=== PATIENT | female | born 1995 | race Caucasian/White ===

== ENCOUNTER 2017-02-27 22:06 | Emergency (ER) | payer OTHER ==
[~2017-02-27] VITALS: Ht 157.5 cm; Wt 101.8 kg
[~2017-02-27 22:06] MED LIST: LOMO2.5T PO; ONDA8TAB7 PO; TRAM50TA PO
[2017-02-27 22:07] VITALS: BP 141/81; PULSE 71; RESP 16; TEMP 99.4; O2SAT 99
[2017-02-27 22:32] VITALS: BP 125/85; PULSE 81; RESP 18; O2SAT 98
[2017-02-27] MEDS ORDERED: SODIUM CHLOR 0.9% 1000 ML INJ 1,000 ML IV SCH (22:46)
--- NOTE | 2017-02-27 22:51 | PD ---
HPI Chief Complaint: GI Complaint Time Seen by Provider: 22:28 Travel History International Travel<30 days: No Contact w/Intl Traveler<30days: No Traveled to known affect area: No History of Present Illness HPI The patient is a 21-year-old female who presents to the emergency department for nausea, vomiting, diarrhea. The patient states her symptoms started 3 days ago diarrhea. The patient describes the diarrhea as loose, watery, without any visible blood. The patient then developed left lower quadrant abdominal pain earlier today which is located left lower quadrant, nonradiating, sharp, constant, and assisted with nausea and vomiting. The patient did have several episodes of nausea and vomiting earlier today which have currently resolved. She does note subjective fevers with chills and sweats. She denies any history of colitis, diverticulitis, or recent international travel. The patient does have a history of irregular menstrual cycles, last menstrual cycle was December 2016. She denies . She denies any dysuria, however, does note she feels like she needs to urinate at the end of urination. She thinks she may have an underlying UTI. She denies any known history of Crohn's disease or ulcerative colitis. Symptoms are moderate without any alleviating or exacerbating factors. PFSH Past Medical History Narrative Medical Thyroid disorder, possibly PCOS Thyroid Disease: Yes Tetanus Vaccination: Never Vaccinated Influenza Vaccination: No ?: Not LMP: 01/14/17 Past Surgical History Narrative Surgical tonsillectomy Tonsillectomy: Yes Social History Alcohol Use: No Tobacco Use: No Substance Use: Yes (weed) Allergies-Medications (Allergen,Severity, Reaction): Coded Allergies: acetaminophen (Verified Allergy, Intermediate, Nausea/Vomiting, 02/27/17) hydrocodone (Verified Allergy, Intermediate, Nausea/Vomiting, 02/27/17) oxycodone (Verified Allergy, Intermediate, Nausea/Vomiting, 02/27/17) Reported Meds & Prescriptions Reported Meds & Active Scripts Active No Active Prescriptions or Reported Medications Review of Systems Except as stated in HPI: all other systems reviewed are Neg General / Constitutional: Positive: Fever, Chills Cardiovascular: No: Chest Pain or Discomfort Respiratory: No: Shortness of Breath Gastrointestinal: Positive: Nausea, Vomiting, Diarrhea, Abdominal Pain Genitourinary: Positive: Urgency, No: Dysuria Musculoskeletal: No: Myalgias, Arthralgias Physical Exam Narrative GENERAL: Awake, alert, pleasant 21-year-old female who appears her stated age and is in no acute respiratory distress. SKIN: Focused skin assessment warm/dry. HEAD: Atraumatic. Normocephalic. EYES: No injection or drainage. ENT: No nasal bleeding or discharge. Mucous membranes pink and moist. NECK: Trachea midline. No JVD. CARDIOVASCULAR: Regular rate and rhythm. No murmur appreciated. RESPIRATORY: No accessory muscle use. Clear to auscultation. Breath sounds equal bilaterally. GASTROINTESTINAL: Abdomen soft, tender palpation left lower quadrant. No rebound, guarding, or rigidity. Back: No CVA tenderness. MUSCULOSKELETAL: No obvious deformities. No clubbing. No cyanosis. No edema. NEUROLOGICAL: Awake and alert. No obvious cranial nerve deficits. Motor grossly within normal limits. Normal speech. PSYCHIATRIC: Appropriate mood and affect; insight and judgment normal. Data Data Last Documented VS Vital Signs Date Time Temp Pulse Resp B/P (MAP) Pulse Ox O2 Delivery O2 Flow Rate FiO2 02/27/17 22:32 81 18 125/85 (98) 98 Room Air 02/27/17 22:07 99.4 Orders Orders Complete Blood Count With Diff (02/27/17 22:46) Comprehensive Metabolic Panel (02/27/17 22:46) Lipase (02/27/17 22:46) Urinalysis - C+S If Indicated (02/27/17 22:46) Ct Abd/Pel W/O Iv Contrast (02/27/17 22:46) Iv Access Insert/Monitor (02/27/17 22:46) Ecg Monitoring (02/27/17 22:46) Oximetry (02/27/17 22:46) Ondansetron Inj (Zofran Inj) (02/27/17 23:00) Sodium Chlor 0.9% 1000 Ml Inj (Ns 1000 M (02/27/17 22:46) Sodium Chloride 0.9% Flush (Ns Flush) (02/27/17 23:00) Ketorolac Inj (Toradol Inj) (02/27/17 23:00) Ed Urine Pregnancytest Poc (02/27/17 22:46) Urine Culture (02/27/17 22:50) Labs Laboratory Tests Test 02/27/17 22:50 White Blood Count 12.3 TH/MM3 Red Blood Count 4.55 MIL/MM3 Hemoglobin 12.2 GM/DL Hematocrit 36.6 % Mean Corpuscular Volume 80.5 FL Mean Corpuscular Hemoglobin 26.9 PG Mean Corpuscular Hemoglobin Concent 33.4 % Red Cell Distribution Width 16.5 % Platelet Count 371 TH/MM3 Mean Platelet Volume 9.1 FL Neutrophils (%) (Auto) 66.0 % Lymphocytes (%) (Auto) 27.3 % Monocytes (%) (Auto) 5.4 % Eosinophils (%) (Auto) 0.9 % Basophils (%) (Auto) 0.4 % Neutrophils # (Auto) 8.1 TH/MM3 Lymphocytes # (Auto) 3.4 TH/MM3 Monocytes # (Auto) 0.7 TH/MM3 Eosinophils # (Auto) 0.1 TH/MM3 Basophils # (Auto) 0.0 TH/MM3 CBC Comment DIFF FINAL Differential Comment Urine Color YELLOW Urine Turbidity CLEAR Urine pH 5.5 Urine Specific [place] 1.035 Urine Protein 30 mg/dL Urine Glucose (UA) NEG mg/dL Urine Ketones NEG mg/dL Urine Occult Blood NEG Urine Nitrite NEG Urine Bilirubin NEG Urine Urobilinogen 2.0 MG/DL Urine Leukocyte Esterase TRACE Urine RBC 2 /hpf Urine WBC 11 /hpf Urine Squamous Epithelial Cells 3 /hpf Urine Hyaline Casts 1 /lpf Urine Mucus MANY /lpf Microscopic Urinalysis Comment CULTURE INDICATED Blood Urea Nitrogen 11 MG/DL Creatinine 0.79 MG/DL Random Glucose 80 MG/DL Total Protein 8.1 GM/DL Albumin 3.7 GM/DL Calcium Level 8.7 MG/DL Alkaline Phosphatase 84 U/L Aspartate Amino Transf (AST/SGOT) 9 U/L Alanine Aminotransferase (ALT/SGPT) 18 U/L Total Bilirubin 0.2 MG/DL Sodium Level 140 MEQ/L Potassium Level 3.6 MEQ/L Chloride Level 106 MEQ/L Carbon Dioxide Level 27.3 MEQ/L Anion Gap 7 MEQ/L Estimat Glomerular Filtration Rate 90 ML/MIN Lipase 131 U/L [facility] Medical Decision Making Medical Screen Exam Complete: Yes Emergency Medical Condition: Yes Medical Record Reviewed: Yes Interpretation(s) Laboratory Tests Test 02/27/17 22:50 White Blood Count 12.3 TH/MM3 Red Blood Count 4.55 MIL/MM3 Hemoglobin 12.2 GM/DL Hematocrit 36.6 % Mean Corpuscular Volume 80.5 FL Mean Corpuscular Hemoglobin 26.9 PG Mean Corpuscular Hemoglobin Concent 33.4 % Red Cell Distribution Width 16.5 % Platelet Count 371 TH/MM3 Mean Platelet Volume 9.1 FL Neutrophils (%) (Auto) 66.0 % Lymphocytes (%) (Auto) 27.3 % Monocytes (%) (Auto) 5.4 % Eosinophils (%) (Auto) 0.9 % Basophils (%) (Auto) 0.4 % Neutrophils # (Auto) 8.1 TH/MM3 Lymphocytes # (Auto) 3.4 TH/MM3 Monocytes # (Auto) 0.7 TH/MM3 Eosinophils # (Auto) 0.1 TH/MM3 Basophils # (Auto) 0.0 TH/MM3 CBC Comment DIFF FINAL Differential Comment Urine Color YELLOW Urine Turbidity CLEAR Urine pH 5.5 Urine Specific [place] 1.035 Urine Protein 30 mg/dL Urine Glucose (UA) NEG mg/dL Urine Ketones NEG mg/dL Urine Occult Blood NEG Urine Nitrite NEG Urine Bilirubin NEG Urine Urobilinogen 2.0 MG/DL Urine Leukocyte Esterase TRACE Urine RBC 2 /hpf Urine WBC 11 /hpf Urine Squamous Epithelial Cells 3 /hpf Urine Hyaline Casts 1 /lpf Urine Mucus MANY /lpf Microscopic Urinalysis Comment CULTURE INDICATED Blood Urea Nitrogen 11 MG/DL Creatinine 0.79 MG/DL Random Glucose 80 MG/DL Total Protein 8.1 GM/DL Albumin 3.7 GM/DL Calcium Level 8.7 MG/DL Alkaline Phosphatase 84 U/L Aspartate Amino Transf (AST/SGOT) 9 U/L Alanine Aminotransferase (ALT/SGPT) 18 U/L Total Bilirubin 0.2 MG/DL Sodium Level 140 MEQ/L Potassium Level 3.6 MEQ/L Chloride Level 106 MEQ/L Carbon Dioxide Level 27.3 MEQ/L Anion Gap 7 MEQ/L Estimat Glomerular Filtration Rate 90 ML/MIN Lipase 131 U/L Last Impressions Abdomen/Pelvis CT 02/27/17 2246 Signed Impressions: Service Date/Time: February 23:38 - CONCLUSION: No acute CT findings in the abdomen or pelvis Eliel Paz MD Differential Diagnosis Differential diagnosis includes viral syndrome, gastroenteritis, colitis, diverticulitis, enteritis, dehydration, food poisoning. Narrative Course IV was established, labs are drawn and sent, and the patient was placed on cardiac telemetry monitoring and continuous pulse oximetry monitoring. The patient was administered Toradol, Zofran, and IV fluids. UA was sent to lab. Bedside UA test was obtained. CT of the abdomen and pelvis without IV contrast was ordered. CT the abdomen and pelvis is unremarkable. White count is 12.3, LFTs and lipase unremarkable. WBCs of 11 in the UA consistent with UTI. The patient most likely has gastritis with underlying UTI. The patient will be treated with sulfa twice a day for one week and administered Zofran as needed for nausea/vomiting. Diagnosis Primary Impression: Gastroenteritis Additional Impression: UTI (urinary tract infection) Qualified Codes: N30.00 - Acute cystitis without hematuria Patient Instructions: General Instructions Additional Instructions: Please provide a patient a work excuse for and Friday. Please provide the patient a copy of her CT results and lab results at discharge. Medications as directed. Follow-up with her primary physician. Clear liquid diet and advance as tolerated. Return if symptoms worsen or progress. Med/Other Pt SpecificInfo: Prescription(s) given Scripts Sulfamethoxazole-Trimethoprim (Bactrim DS) 800-160 Mg Tab 1 TAB PO BID for Infection, #14 TAB 0 Refills Prov: Roman Adame MD 02/28/17 Ondansetron Odt (Zofran Odt) 4 Mg Tab 4 MG SL Q6HR Y for Nausea/Vomiting, #10 TAB 0 Refills Prov: Roman Adame MD 02/28/17 Disposition: DISCHARGE HOME Condition: Stable Roman Adame MD Feb 27, 2017 22:51
[2017-02-27] MEDS ORDERED: ONDANSETRON HCL 4 MG/2 ML VIAL IVP ONE (23:00)
[2017-02-27] MEDS ORDERED: SODIUM CHLORIDE 0.9% FLUSH 10 ML FLUSH IV FLUSH PRN (23:00)
[2017-02-27] MEDS ORDERED: KETOROLAC TROMETHAMINE 30 MG/ML (IVP) VIAL IVP ONE (23:00)
[2017-02-27 23:12] LABS: AUTOMATED NEUTROPHIL # 8.1 TH/MM3 (1.8-7.7); BASOPHIL % 0.4 % (0.0-2.0); BILIRUBIN, URINE NEG (NEG); BLOOD, URINE NEG (NEG); EOSINOPHIL # 0.1 TH/MM3 (0-0.4); EOSINOPHIL % 0.9 % (0.0-4.0); GLUCOSE,URINE NEG (NEG); HEMATOCRIT 36.6 % (35.0-46.0); HEMOGLOBIN 12.2 GM/DL (11.6-15.3); HYALINE CAST, URINE 1 /lpf (RARE); KETONE, URINE NEG (NEG); LYMPH % 27.3 % (9.0-44.0); LYMPHOCYTE # 3.4 TH/MM3 (1.0-4.8); MEAN CELL VOLUME 80.5 FL (80.0-100.0); MEAN CORPUSCULAR HEMOGLOBIN 26.9 PG (27.0-34.0); MEAN CORPUSCULAR HGB CONC 33.4 % (32.0-36.0); MEAN PLATELET VOLUME 9.1 FL (7.0-11.0); MONO % 5.4 % (0.0-8.0); MONOCYTE # 0.7 TH/MM3 (0-0.9); MUCUS URINE MANY /lpf (OCC); NITRITE,URINE NEG (NEG); PH, URINE 5.5 (5.0-8.5); PLATELET COUNT 371 TH/MM3 (150-450); RED BLOOD COUNT 4.55 MIL/MM3 (4.00-5.30); RED CELL DISTRIBUTION WIDTH 16.5 % (11.6-17.2); SQUAMOUS EPITHELIAL CELL URINE 3 /hpf (0-5); URINE COLOR YELLOW (YELLW/STRAW); URINE LEUKOCYTE ESTERASE TRACE (NEG); WHITE BLOOD COUNT 12.3 TH/MM3 (4.0-11.0)
[2017-02-27 23:19] LABS: ALBUMIN 3.7 GM/DL (3.4-5.0); AST (GOT) 9 U/L (15-37); BICARBONATE 27.3 MEQ/L (21.0-32.0); BLOOD UREA NITROGEN 11 MG/DL (7-18); CALCIUM 8.7 MG/DL (8.5-10.1); CHLORIDE 106 MEQ/L (98-107); CREATININE 0.79 MG/DL (0.50-1.00); GLOMERULAR FILTRATION RATE 90 ML/MIN (>89); GLUCOSE,RANDOM 80 MG/DL (74-106); LIPASE 131 U/L (73-393); SODIUM (NA) 140 MEQ/L (136-145)
[2017-02-27 23:21] LABS: ALT (GPT) 18 U/L (10-53)
[2017-02-27 23:23] LABS: ALKALINE PHOSPHATASE 84 U/L (45-117); TOTAL BILIRUBIN ADULT 0.2 MG/DL (0.2-1.0); TOTAL PROTEIN 8.1 GM/DL (6.4-8.2)
--- NOTE | 2017-02-28 00:11 | RADRPT ---
EXAM DATE/TIME: 02/27/2017 23:38 [place] COMPARISON: No previous studies available for comparison. INDICATIONS : Left lower quadrant pain with nausea and diarrhea. ORAL CONTRAST: No oral contrast ingested. RADIATION DOSE: 11.78 CTDIvol (mGy) MEDICAL HISTORY : None SURGICAL HISTORY : None. ENCOUNTER: Initial ACUITY: 3 days PAIN SCALE: 8/10 LOCATION: Left lower quadrant TECHNIQUE: Volumetric scanning of the abdomen and pelvis was performed. Using automated exposure control and ad justment of the mA and/or kV according to patient size, radiation dose was kept as low as reasonably achievable to obtain optimal diagnostic quality images. DICOM format image data is available electro nically for review and comparison. FINDINGS: LOWER LUNGS: The visualized lower lungs are clear. LIVER: Homogeneous density without lesion. There is no dilation of the biliary tree. No calcified gallston es. SPLEEN: Normal size without lesion. PANCREAS: Within normal limits. KIDNEYS: Normal in size and shape. There is no mass, stone, or hydronephrosis. ADRENAL GLANDS: Within normal limits. VASCULAR: There is no aortic aneurysm. BOWEL/MESENTERY: The stomach, small bowel, and colon demonstrate no acute abnormality. There is no free intraperitone al air or fluid. ABDOMINAL WALL: Within normal limits. RETROPERITONEUM: There is no lymphadenopathy. BLADDER: No wall thickening or mass. REPRODUCTIVE: Within normal limits. INGUINAL: There is no lymphadenopathy or hernia. MUSCULOSKELETAL: Within normal limits for patient age. CONCLUSION: No acute CT findings in the abdomen or pelvis Eliel Paz MD on February 28, 2017 at 0:05 Board Certified Radiologist. This report was verified electronically.
[2017-02-28] MEDS ORDERED: ZOFR4TAB3 SL (00:41)
[2017-02-28] MEDS ORDERED: BACT800T5 PO (00:41)
== END 2017-02-28 01:29 | disposition home or self-care (01) ==
LOC: NEPE 22:06
DX: K52.9 Noninfective gastroenteritis and colitis, unspecified (principal); N39.0 Urinary tract infection, site not specified; E07.9 Disorder of thyroid, unspecified; Z88.5 Allergy status to narcotic agent; Z88.6 Allergy status to analgesic agent
CPT/HCPCS: 74176; 80053; 81001; 83690; 84703; 85025; 87086; 96374; 96375; 99285; J1885; J2405; J7030

== ENCOUNTER 2017-04-14 15:57 | Emergency (ER) | payer OTHER ==
[~2017-04-14] VITALS: Ht 157.5 cm; Wt 102.0 kg
[~2017-04-14 15:57] MED LIST changes: +BACT800T5 PO; -LOMO2.5T PO; -ONDA8TAB7 PO; -TRAM50TA PO; +ZOFR4TAB3 SL
[2017-04-14 16:10] VITALS: BP 130/85; PULSE 80; RESP 16; TEMP 98.6; O2SAT 97
--- NOTE | 2017-04-14 16:31 | PD ---
HPI Chief Complaint: Abdominal Pain Time Seen by Provider: 16:30 Travel History International Travel<30 days: No Contact w/Intl Traveler<30days: No Traveled to known affect area: No History of Present Illness HPI 21-year-old female came to the emergency room with history of dysuria and suprapubic discomfort on and off for past 2 weeks. Patient says that the first time when it started she finished a course of Bactrim for 10 days. The symptoms had resolved for couple days but then started again. No history of fever or chills. She also complains of some nausea and diarrhea. Vital signs are stable. She is otherwise a healthy person. Upon asking she said that there was a chance she could be . [facility] Past Medical History Narrative Medical List of her past medical, surgical, social and family history is reviewed from the nursing note Thyroid Disease: Yes Past Surgical History Tonsillectomy: Yes Social History Alcohol Use: No Tobacco Use: No Substance Use: Yes (weed) Allergies-Medications (Allergen,Severity, Reaction): Coded Allergies: acetaminophen (Verified Allergy, Intermediate, Nausea/Vomiting, 04/14/17) hydrocodone (Verified Allergy, Intermediate, Nausea/Vomiting, 04/14/17) oxycodone (Verified Allergy, Intermediate, Nausea/Vomiting, 04/14/17) Comments List of her allergies reviewed from the nursing note. Reported Meds & Prescriptions Reported Meds & Active Scripts Active Macrobid (Nitrofurantoin Monoh/Nitrofur Macro) 100 Mg Cap 100 Mg PO BID 7 Days Narrative Medication List of her home medications reviewed from the nursing note. Review of Systems Except as stated in HPI: all other systems reviewed are Neg Genitourinary: Positive: Urgency, Dysuria Physical Exam Narrative GENERAL: Awake, alert, obese, mild distress SKIN: Focused skin assessment warm/dry. HEAD: Atraumatic. Normocephalic. EYES: Pupils equal and round. No scleral icterus. No injection or drainage. ENT: No nasal bleeding or discharge. Mucous membranes pink and moist. NECK: Trachea midline. No JVD. CARDIOVASCULAR: Regular rate and rhythm. No murmur appreciated. RESPIRATORY: No accessory muscle use. Clear to auscultation. Breath sounds equal bilaterally. GASTROINTESTINAL: Abdomen soft, non-tender, nondistended. Hepatic and splenic margins not palpable. MUSCULOSKELETAL: No obvious deformities. No clubbing. No cyanosis. No edema. NEUROLOGICAL: Awake and alert. No obvious cranial nerve deficits. Motor grossly within normal limits. Normal speech. PSYCHIATRIC: Appropriate mood and affect; insight and judgment normal. Data Data Last Documented VS Orders Orders Urinalysis - C+S If Indicated (04/14/17 16:12) Ed Urine Pregnancytest Poc (04/14/17 16:12) Urine Culture (04/14/17 16:28) Nitrofurantoin Monohyd Macrocr (Macrobid (04/14/17 17:00) Ed Discharge Order (04/14/17 16:56) Labs Laboratory Tests Test 04/14/17 16:28 Urine Color STRAW Urine Turbidity CLOUDY Urine pH 6.0 Urine Specific [place] 1.022 Urine Protein TRACE mg/dL Urine Glucose (UA) NEG mg/dL Urine Ketones NEG mg/dL Urine Occult Blood TRACE Urine Nitrite NEG Urine Bilirubin NEG Urine Leukocyte Esterase LARGE Urine RBC 0-3 /hpf Urine WBC 20-24 /hpf Urine WBC Clumps FEW Urine Squamous Epithelial Cells > 8 /hpf Urine Bacteria FEW /hpf Microscopic Urinalysis Comment CULTURE INDICATED MDM Medical Decision Making Medical Screen Exam Complete: Yes Emergency Medical Condition: Yes Medical Record Reviewed: Yes Differential Diagnosis Cystitis, , acute diverticulitis Narrative Course 4:54 PM UA suggestive of UTI. Urine was negative. She'll be given a dose of Macrobid and a prescription to go home with. Procedures EKG Prior to Arrival: No Diagnosis Primary Impression: Acute cystitis Qualified Codes: N30.00 - Acute cystitis without hematuria Referrals: Primary Care Physician Additional Instructions: Take the medication as per the prescription direction. Drink lots of fluid and cranberry juice. Return to ER if condition worsens or any other new concerns. Med/Other Pt SpecificInfo: Prescription(s) given Scripts Nitrofurantoin Monohydrate Macrocrystals (Macrobid) 100 Mg Cap 100 MG PO BID for Infection for 7 Days, #14 CAP 0 Refills Prov: Michaela Graham MD 04/14/17 Disposition: 01 DISCHARGE HOME Condition: Stable Michaela Graham MD Apr 14, 2017 16:31
[2017-04-14 16:39] LABS: BILIRUBIN, URINE NEG (NEG); GLUCOSE,URINE NEG (NEG); KETONE, URINE NEG (NEG); NITRITE,URINE NEG (NEG); URINE LEUKOCYTE ESTERASE LARGE (NEG)
[2017-04-14 16:47] LABS: BLOOD, URINE TRACE (NEG); RBC, URINE 0-3 /hpf (0-3); URINE COLOR STRAW (YELLW/STRAW); WHITE BLOOD CELL CLUMPS FEW
[2017-04-14 16:48] LABS: BACTERIA, URINE FEW /hpf; SQUAMOUS EPITHELIAL CELL URINE > 8 /hpf (0-5)
[2017-04-14] MEDS ORDERED: MACR100C2 PO (16:56)
[2017-04-14] MEDS ORDERED: NITROFURANTOIN MONOHYD MACROCR 100 MG CAP PO ONE (17:00)
== END 2017-04-14 17:15 | disposition home or self-care (01) ==
LOC: PHED 15:57
DX: N30.00 Acute cystitis without hematuria (principal); R19.7 Diarrhea, unspecified
CPT/HCPCS: 81001; 84703; 87086; 99283

== ENCOUNTER 2017-04-24 08:59 | Emergency (ER) | payer OTHER ==
[~2017-04-24] VITALS: Ht 160 cm; Wt 110.0 kg
[~2017-04-24 08:59] MED LIST changes: -BACT800T5 PO; +MACR100C2 PO; -ZOFR4TAB3 SL
[2017-04-24 09:00] VITALS: BP 140/71; PULSE 84; RESP 14; TEMP 98.8; O2SAT 99
--- NOTE | 2017-04-24 09:18 | PD ---
HPI Chief Complaint: ENT Complaint Time Seen by Provider: 09:15 Travel History International Travel<30 days: No Contact w/Intl Traveler<30days: No Traveled to known affect area: No History of Present Illness HPI This is a 21-year-old female who presents for evaluation of cough, congestion, sore throat, chills and myalgias. Symptoms started yesterday. She reports that she works at a [employer] and has been exposed to multiple sick contacts at work. Denies abdominal pain, nausea or vomiting, rash, recent travel. No aggravating or alleviating factors. No other complaints at this time. PFSH Past Medical History Thyroid Disease: Yes ?: Unknown Past Surgical History Tonsillectomy: Yes Social History Alcohol Use: Yes (RARELY) Tobacco Use: No Substance Use: Yes (MARIJUANA) Allergies-Medications (Allergen,Severity, Reaction): Coded Allergies: acetaminophen (Verified Allergy, Intermediate, Nausea/Vomiting, 04/24/17) hydrocodone (Verified Allergy, Intermediate, Nausea/Vomiting, 04/24/17) oxycodone (Verified Allergy, Intermediate, Nausea/Vomiting, 04/24/17) Reported Meds & Prescriptions Reported Meds & Active Scripts Active Macrobid (Nitrofurantoin Monoh/Nitrofur Macro) 100 Mg Cap 100 Mg PO BID 7 Days Review of Systems Except as stated in HPI: all other systems reviewed are Neg Physical Exam Narrative GENERAL: Well-developed well-nourished female in no acute distress SKIN: Warm and dry. HEAD: Atraumatic. Normocephalic. EYES: Pupils equal and round. No scleral icterus. No injection or drainage. ENT: No nasal bleeding or discharge. Mucous membranes pink and moist. There is oropharyngeal erythema without exudate. Tympanic membranes appear normal without erythema or fluid level. NECK: Trachea midline. No JVD. No lymphadenopathy. CARDIOVASCULAR: Regular rate and rhythm. No murmur appreciated. RESPIRATORY: No accessory muscle use. Clear to auscultation. Breath sounds equal bilaterally. Data Data Last Documented VS Vital Signs Date Time Temp Pulse Resp B/P (MAP) Pulse Ox O2 Delivery O2 Flow Rate FiO2 04/24/17 09:00 98.8 84 14 140/71 (94) 99 Orders Orders Influenzae A/B Antigen (04/24/17 09:16) Group A Rapid Strep Screen (04/24/17 09:16) Strep Culture (Group A) (04/24/17 09:40) [facility] Medical Decision Making Medical Screen Exam Complete: Yes Emergency Medical Condition: Yes Medical Record Reviewed: Yes Differential Diagnosis Influenza, pharyngitis, bronchitis, pneumonia Narrative Course Rapid strep screen is found to antigen test were performed and they are both negative. The patient has a viral upper respiratory infection. She is stable for discharge. Diagnosis Primary Impression: Upper respiratory infection Additional Instructions: Stay well-hydrated and well-nourished, get plenty of rest. Wash hands frequently, cover mouth when coughing. Return for any emergent medical conditions. Med/Other Pt SpecificInfo: No Change to Meds Disposition: 01 DISCHARGE HOME Condition: Stable Chuy Chang Apr 24, 2017 09:18
== END 2017-04-24 10:28 | disposition home or self-care (01) ==
LOC: NEPK 08:59
DX: J06.9 Acute upper respiratory infection, unspecified (principal); E07.9 Disorder of thyroid, unspecified; F12.90 Cannabis use, unspecified, uncomplicated; Z88.5 Allergy status to narcotic agent; Z88.6 Allergy status to analgesic agent
CPT/HCPCS: 87081; 87804; 87880; 99283

== ENCOUNTER 2017-05-26 12:22 | Emergency (ER) | payer OTHER ==
[~2017-05-26] VITALS: Ht 160 cm; Wt 102.7 kg
[2017-05-26 12:30] VITALS: BP 132/80; PULSE 88; RESP 16; TEMP 98.1; O2SAT 97
[2017-05-26] MEDS ORDERED: MEDR2.5 PO (12:46)
[2017-05-26] MEDS ORDERED: BENZ100 PO (13:28)
--- NOTE | 2017-05-26 13:28 | PD ---
HPI Chief Complaint: ENT Complaint Time Seen by Provider: 12:53 Travel History International Travel<30 days: No Contact w/Intl Traveler<30days: No Traveled to known affect area: No History of Present Illness HPI 21-year-old female with sore throat, nasal congestion, cough, hoarse voice posterior days. Symptom severity is mild. No aggravating or alleviating factors. Denies fever or chills. No sick contacts or foreign travel. PFSH Past Medical History Medical History: Denies Significant Hx Reproductive: Yes (pcos) Thyroid Disease: Yes Tetanus Vaccination: Unknown Influenza Vaccination: No ?: Unknown LMP: 03/13/17 Past Surgical History Tonsillectomy: Yes Social History Alcohol Use: Yes (RARELY) Tobacco Use: No Substance Use: Yes (MARIJUANA by hx) Allergies-Medications (Allergen,Severity, Reaction): Coded Allergies: acetaminophen (Verified Allergy, Intermediate, Nausea/Vomiting, 04/24/17) hydrocodone (Verified Allergy, Intermediate, Nausea/Vomiting, 04/24/17) oxycodone (Verified Allergy, Intermediate, Nausea/Vomiting, 04/24/17) Reported Meds & Prescriptions Reported Meds & Active Scripts Active Reported Provera (Medroxyprogesterone Acetate) 2.5 Mg Tab 2.5 Mg PO 5 TIMES A MONTH Start day 16 Review of Systems Except as stated in HPI: all other systems reviewed are Neg Physical Exam Narrative GENERAL: Alert well-appearing 21-year-old female SKIN: Warm and dry. No rash HEAD: Normocephalic. EYES: No injection or drainage. Ear/nose/throat: No TM erythema. Clear nasal discharge. Pharyngeal erythema without tonsillar hypertrophy or exudate. Uvula is midline. Airway is patent. The source NECK: Supple. No meningismus CARDIOVASCULAR: Regular rate and rhythm without murmurs, gallops, or rubs. RESPIRATORY: Breath sounds equal bilaterally. No accessory muscle use. GASTROINTESTINAL: Abdomen soft, non-tender, nondistended. MUSCULOSKELETAL: No cyanosis, or edema. BACK: No CVA tenderness. Data Data Last Documented VS Vital Signs Date Time Temp Pulse Resp B/P (MAP) Pulse Ox O2 Delivery O2 Flow Rate FiO2 05/26/17 12:30 98.1 88 16 132/80 (97) 97 MDM Medical Decision Making Medical Screen Exam Complete: Yes Emergency Medical Condition: Yes Differential Diagnosis Laryngitis, viral URI, influenza, strep pharyngitis Narrative Course 21-year-old female here with mild viral upper respiratory infection. She is well-appearing. Vital signs are stable. Airway is patent. Symptomatic treatment discussed Diagnosis Primary Impression: URI (upper respiratory infection) Qualified Codes: J06.9 - Acute upper respiratory infection, unspecified Referrals: Primary Care Physician Departure Forms: Tests/Procedures, Work Release Enter return to work date: May 29, 2017 Additional Instructions: Ibuprofen as needed for pain and fever. Voice rest is recommended. Stay well hydrated. Scripts Benzonatate (Tessalon Perles) 100 Mg Cap 200 MG PO TID Y for COUGH for 3 Days, CAP 0 Refills Prov: Pilar Ashton 05/26/17 Disposition: DISCHARGE HOME Condition: Stable Pilar Ashton May 26, 2017 13:28
== END 2017-05-26 13:40 | disposition home or self-care (01) ==
LOC: PHEFT 12:22
DX: J06.9 Acute upper respiratory infection, unspecified (principal)
CPT/HCPCS: 99283

== ENCOUNTER 2017-06-26 20:03 | Emergency (ER) | payer OTHER ==
[~2017-06-26] VITALS: Ht 160 cm; Wt 100.0 kg
[~2017-06-26 20:03] MED LIST changes: +BENZ100 PO; -MACR100C2 PO; +MEDR2.5 PO
[2017-06-26 20:08] VITALS: BP 165/95; PULSE 124; RESP 18; TEMP 100.6; O2SAT 100
[2017-06-26] MEDS ORDERED: IBUPROFEN 600 MG TAB PO ONE (21:30)
--- NOTE | 2017-06-26 21:39 | PD ---
HPI Chief Complaint: ENT Complaint Time Seen by Provider: 21:35 Travel History International Travel<30 days: No Contact w/Intl Traveler<30days: No Traveled to known affect area: No History of Present Illness HPI 22-year-old female states she woke up this morning with a sore throat and has been feeling generally weak and ill throughout the day. She states she did not realize she had a fever. She denies any specific nasal congestion or cough or other significant complaints. Quality sore. Locations throat. Severity is improving some per patient. She denies taking any Motrin prior to arrival and is allergic to Tylenol. Her symptoms started today. PFSH Past Medical History Medical other: Yes (cat scratch fever in past) Reproductive: Yes (pcos) Thyroid Disease: Yes Tetanus Vaccination: Never Vaccinated Influenza Vaccination: No ?: Not (Denies possibility) LMP: 05/28/17 Past Surgical History Tonsillectomy: Yes Social History Alcohol Use: Yes (RARELY) Tobacco Use: No Substance Use: Yes (MARIJUANA by hx) Allergies-Medications (Allergen,Severity, Reaction): Coded Allergies: hydrocodone (Verified Allergy, Intermediate, Nausea/Vomiting, 06/26/17) oxycodone (Verified Allergy, Intermediate, Nausea/Vomiting, 06/26/17) Reported Meds & Prescriptions Reported Meds & Active Scripts Active No Active Prescriptions or Reported Medications Review of Systems Except as stated in HPI: all other systems reviewed are Neg Physical Exam Narrative General: No apparent distress, well appearing ENT: Posterior oropharyngx shows small vesicle-like areas noted to oropharynx without associated exudate, post tonsillectomy, uvula midline, external auditory canals are normal. Bilateral TM clear Neck: Neck is supple, no meningeal signs, trachea is midline Cardiovascular: Regular rate and rhythm Lungs: No increased respiratory effort noted, CTA bilaterally Abdomen: Soft, NT, ND Psych: Appropriate mood and affect Extremities: No edema Neuro: Awake, motor and sensation grossly intact, normal speech Data Data Last Documented VS Vital Signs Date Time Temp Pulse Resp B/P (MAP) Pulse Ox O2 Delivery O2 Flow Rate FiO2 06/26/17 23:41 99.0 98 16 98 Room Air Orders Orders Ibuprofen (Motrin) (06/26/17 21:30) Group A Rapid Strep Screen (06/26/17 21:35) Strep Culture (Group A) (06/26/17 21:45) Acetaminophen (Tylenol) (06/26/17 23:15) Ed Discharge Order (06/26/17 23:41) [facility] Medical Decision Making Medical Screen Exam Complete: Yes Emergency Medical Condition: Yes Medical Record Reviewed: Yes (Past history confirmed) Interpretation(s) strep is negative Differential Diagnosis URI, strep pharyngitis, mono Narrative Course Will check strep screen and dose with Motrin and reevaluate. Patient well- appearing on exam Vitals have improved after Motrin. Patient still noting body pain so will dose with Tylenol and reevaluate, she states she is not allergic to this so it will be removed from allergies Patient denies any new complaints and states that they are feeling better. Patient happy with care, all questions answered. Patient knows that follow up is incumbent on them and to return to the emergency room immediately if new or worsening symptoms develop. Patient given strict return precautions, vitals reviewed and are normal, agrees to further workup as an outpatient. Diagnosis Primary Impression: Sore throat Additional Impression: Upper respiratory infection Qualified Codes: J06.9 - Acute upper respiratory infection, unspecified Patient Instructions: General Instructions Additional Instructions: alternate tylenol and motrin, return as needed, follow with primary this week Med/Other Pt SpecificInfo: No Change to Meds Scripts No Active Prescriptions or Reported Meds Disposition: 01 DISCHARGE HOME Condition: Stable Reanna Mulligan MD Jun 26, 2017 21:39
[2017-06-26 22:16] VITALS: BP 122/63; PULSE 98; RESP 18; O2SAT 99
[2017-06-26 22:18] VITALS: PULSE 110; TEMP 100.2
[2017-06-26] MEDS ORDERED: ACETAMINOPHEN 325 MG TAB PO ONE (23:15)
[2017-06-26 23:41] VITALS: PULSE 98; RESP 16; TEMP 99; O2SAT 98
== END 2017-06-26 23:48 | disposition home or self-care (01) ==
LOC: NEPE 20:03
DX: J02.9 Acute pharyngitis, unspecified (principal)
CPT/HCPCS: 87081; 87880; 99283